=== PATIENT | female | born 1935 ===

== ENCOUNTER 2017-03-12 08:13 | Emergency (ER) | payer MEDICARE, BC ==
--- NOTE | ~2017-03-12 | ER ---
PATIENT'S NAME: KASEY POLLACK [facility] AGE: 81 Y [address] ROOM: [place] [address] LOCATION: [facility] ADMIT DATE: 03/12/2017 ER/Outpatient Report DISCHARGE DATE: FAMILY PHYSICIAN: Paddy Reynoso MD ATTENDING PHYSICIAN: Yuri Beltran CHIEF COMPLAINT: Right arm pain. HISTORY OF PRESENT ILLNESS: I saw this patient in conjunction with the resident, Dr. Holcomb. Please see her note for complete details. The patient did present for right-sided arm pain which got a lot worse today. She has a history of hypertension, anxiety, and migraines. She states she has not seen her primary care doctor in quite a while. She states her blood pressure does normally run high, but she has not taken her blood pressure medicines today. She denies any chest pain with this. She also does not have any confusion, headache, or vision changes associated with this as well. Of note, she did state that she had some shortness of breath which is particularly worse at night, which has been going on for weeks as well. PAST MEDICAL HISTORY: Documented in the record and reviewed by me. SOCIAL HISTORY: Documented in the record and reviewed by me. MEDICATIONS: Documented in the record and reviewed by me. ALLERGIES: DOCUMENTED IN THE RECORD AND REVIEWED BY ME. REVIEW OF SYSTEMS: All systems reviewed and negative except as noted in the HPI. PHYSICAL EXAMINATION: VITAL SIGNS: Blood pressure 209/90, pulse 64, respiratory rate 16, temperature 98.2, and SpO2 is 95% on room air. NEUROLOGIC: The patient is awake and is alert. GCS 15. No focal deficits. No asymmetry. HEENT: Normocephalic and atraumatic. Eyes are PERRL. Oropharynx is clear. NECK: Supple. Trachea is midline. CHEST: Heart has a regular rate and rhythm. PATIENT'S NAME: KASEY POLLACK [facility] AGE: 81 Y [address] ROOM: [place], [place] [address] LOCATION: [facility] ADMIT DATE: 03/12/2017 ER/Outpatient Report DISCHARGE DATE: FAMILY PHYSICIAN: Paddy Reynoso MD ATTENDING PHYSICIAN: Yuri Beltran LUNGS: Clear to auscultation bilaterally with no rhonchi, wheezes, or rales. EXTREMITIES: Right upper extremity is nontender with no deformities, no obvious abnormalities. The other extremities are grossly unremarkable. No edema. ABDOMEN: Soft, nontender, and nondistended. No masses, no rebound, no guarding. BACK: Nontender to palpation throughout. No CVA tenderness. LABORATORY DATA: Labs; urinalysis is not consistent with infection. Troponin is below threshold. The CMS is notable for GFR of 53, creatinine 1.0. Grossly otherwise unremarkable other than mild hyponatremia at 134. Hemoglobin is slightly hemo concentrated at 16.3, WBCs of 6.2, and platelets of 153,000. EKG is a sinus rhythm, rate of 60 with otherwise normal intervals, and slight left axis deviation. No signs of acute ischemia. IMPRESSION: Right arm pain, undetermined etiology. EMERGENCY DEPARTMENT COURSE: The patient was seen and evaluated. She has no evidence of ACS at this time. Chest x-ray is grossly unremarkable. She is otherwise doing okay. She did not require any medications. She will be discharged to home with instructions to follow up with her primary care physician, Dr. Reynoso, for possible physical therapy and to take [id number] anti-inflammatories as needed. She should return immediately if there are any other concerns or questions. MD NATANAEL ODOM/deb /[id number] d: 03/12/172206 t: 03/17/172201, OUTPATIENT REPORT
--- NOTE | ~2017-03-12 | ER ---
PATIENT'S NAME: KAESY POLLACK [facility] AGE: 81 Y [address] ROOM: [place] [address] LOCATION: [facility] ADMIT DATE: 03/12/2017 ER/Outpatient Report DISCHARGE DATE: FAMILY PHYSICIAN: Paddy Reynoso MD ATTENDING PHYSICIAN: Yuri Porter HISTORY OF PRESENT ILLNESS: The patient is an 81-year-old female who came in with a chief complaint of right upper arm and shoulder pain. This has been going off and on for a while, but she woke up, and it was worse this morning. 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 She is not currently taking any medications for this. Did not try anything for this this morning. Nothing makes it better, but it waxes and wanes, and she says certain movements aggravated, but cannot pinpoint the certain movement that does aggravate it. The patient denies any chest pain, but states that she has been short of breath off and on for the past several months. The patient's spouse is in the room with the patient and states he feels she is more short of breath when she is sleeping at night. The patient also has a complaint of not able to fully empty her bladder at times. She states that sometimes she is able to urinate without a problem, and then other times, it only dribbles out, and she does not feel that she completely empties her bladder. The patient is not taking any medications for this. The patient denies any urinary frequency, hesitancy, or burning with urination. Denies any abdominal pain, fevers chills, nausea, or vomiting. Denies any lower extremity edema or headache, but she does have a past medical history of migraines. No current headache. The patient also has a past medical history of anxiety and takes BuSpar for this. Other medications include metoprolol for hypertension, and she did not take that this morning. PAST SURGICAL HISTORY: Includes an appendectomy. SOCIAL HISTORY: The patient denies any smoking history or drug or alcohol use. REVIEW OF SYSTEMS: A complete and comprehensive review of systems was completed and is negative as except as noted above. ALLERGIES: THE PATIENT HAS NO KNOWN DRUG ALLERGIES. PHYSICAL EXAMINATION: GENERAL: The patient is in no acute distress. PATIENT'S NAME: KASEY POLLACK [facility] AGE: 81 Y [address] ROOM: [place], [place] [address] LOCATION: [facility] ADMIT DATE: 03/12/2017 ER/Outpatient Report DISCHARGE DATE: FAMILY PHYSICIAN: Paddy Reynoso MD ATTENDING PHYSICIAN: Yuri Porter VITAL SIGNS: Weight 63.9 kg. Blood pressure 209/90, pulse 64, respirations 16, temperature 98.2 TM, and O2 of 95% on room air. CHEST: Clear to auscultation bilaterally. CARDIOVASCULAR: Regular rate and rhythm. 3/6 systolic murmur, best at left sternal border. ABDOMEN: Soft, nontender, and nondistended. Positive bowel sounds. EXTREMITIES: She is able to move all extremities. No edema. Full range of motion. She has 4/5 strength with biceps. Otherwise, 5/5 strength throughout. Crepitus is felt in the right shoulder joint. There is no effusion. No erythema. Tenderness generalized around the shoulder joint, but greatest in the anterior aspect. It is warm, dry, and intact. The patient is independent with her ADL and appears well-nourished and hydrated. DIAGNOSTIC DATA: X-ray obtained of the right shoulder shows arthritis, final read is pending. LABORATORY DATA: Troponin was negative. CMP and CBC were both within normal limits. UA was negative. EKG showed sinus nithin with a rate of 58. Otherwise, unchanged from previous EKGs. IMPRESSION: Right shoulder pain secondary to arthritis. PLAN: The patient was given a prescription and instructed to start physical therapy for strengthening and range of motion. She was also given a script for Voltaren 1% gel to be applied twice daily as needed for pain. She was also advised she can take Tylenol up to 3000 mg daily as needed for pain. Use heat and ice therapy and do stretching twice daily. The patient was instructed to follow up with her primary care doctor in 3 to 5 days or return to the ER if symptoms change or worsen. [employer], RESIDENT FOR YURI PORTER MD SLL/modl /[id number] I have personally evaluated this patient and reviewed the documentation above. I agree with the plan as documented. d: 03/12/17 1634 t: 03/17/17 2207, OUTPATIENT REPORT
[2017-03-12 09:25] LABS: BASOPHIL % 0.6 %; EOSINOPHIL % 0.6 %; HEMATOCRIT 47.8 % (30.0-46.0); HEMOGLOBIN 16.3 g/dL (10.0-15.0); IMMATURE GRANULOCYTE % 0.3 %; LYMPHOCYTE % 15.5 %; MCH 31.7 pg (27.0-34.0); MCHC 34.1 gm/dL (32.0-36.5); MCV 92.8 fl (83.0-98.0); MONOCYTE # 0.6 K/uL (0.0-1.0); MONOCYTE % 9.1 %; MPV 8.8 fl (9.4-12.4); NEUTROPHIL # (ANC) 4.6 K/uL (1.8-7.8); NEUTROPHIL % 73.9 %; NRBC % 0 /100WBC (0-0.00); PLATELET COUNT 153 K/uL (150-450); RBC 5.15 M/uL (3.00-5.00); RDW-CV 12.5 % (11.9-14.6); WBC 6.2 K/uL (4.0-11.0)
[2017-03-12 09:45] LABS: ALBUMIN 4.1 gm/dL (3.5-5.0); ANION GAP 10.8 (10.0-19.0); POTASSIUM 3.8 mMol/L (3.7-5.1); TOTAL BILIRUBIN 0.6 mg/dL (0.0-1.5); TOTAL PROTEIN 7.4 g/dL (6.0-8.4)
[2017-03-12 10:10] LABS: BILIRUBIN URINE NEGATIVE (NEGATIVE); BLOOD URINE NEGATIVE /UL (NEGATIVE); COLOR URINE YELLOW (YELLOW); GLUCOSE URINE NEGATIVE (NEGATIVE); KETONE URINE NEGATIVE (NEGATIVE); LEUKOCYTES URINE 25 /UL (NEGATIVE); NITRITE URINE NEGATIVE (NEGATIVE); PROTEIN URINE NEGATIVE (NEGATIVE); SPEC GRAVITY URINE 1.015 (1.003-1.035); TURBIDITY URINE CLEAR (CLEAR); UROBILINOGEN URINE NORMAL (NORMAL)
[2017-03-12 10:31] LABS: EPITHELIAL URINE 0-2 #/HPF (NEGATIVE); RBC URINE NEGATIVE #/HPF (NEGATIVE); WBC URINE 0-2 #/HPF (NEGATIVE)
[2017-03-12 10:32] LABS: BACTERIA URINE RARE (NEGATIVE); HYALINE CAST URINE 0-2 #/LPF (NEGATIVE); MUCUS URINE 1+ (NEGATIVE)
== END 2017-03-12 10:40 | disposition disaster alternative care site (69) ==
LOC: GMED 08:13
PROVIDERS: Emergency Medicine
DX: M19.011 Primary osteoarthritis, right shoulder (principal); Z90.49 Acquired absence of other specified parts of digestive tract